=== PATIENT | female | born 1990 | race Caucasian/White ===

== ENCOUNTER 2018-08-23 00:05 | Observation (INO) | payer BC ==
[~2018-08-23] VITALS: Ht 167.6 cm; Wt 101.6 kg
[2018-08-23] MEDS ORDERED: LACTATED RINGERS 1000ML 1,000 ML IV SCH (00:15)
[2018-08-23] MEDS ORDERED: FOLI0.4T2 PO (00:18)
[2018-08-23] MEDS ORDERED: PREN1TAB26 PO (00:18)
[2018-08-23 00:32] LABS: APPEARANCE,URINE Clear (CLEAR); BILIRUBIN,URINE Negative (NEGATIVE); COLOR,URINE Yellow (YELLOW); GLUCOSE, URINE (UA) Negative (NEGATIVE); KETONES,URINE Negative (NEGATIVE); LEUKOCYTE ESTERASE ,URINE Negative (NEGATIVE); NITRATE,URINE Negative (NEGATIVE); OCCULT BLOOD,URINE Negative (NEGATIVE); PROTEIN,URINE Negative (NEGATIVE)
[2018-08-23 01:06] LABS: AMPHET/METH SCREEN,URINE NEGATIVE (NEGATIVE); BARBITURATE SCREEN, URINE NEGATIVE (NEGATIVE); BENZODIAZEPINES SCREEN,URINE NEGATIVE (NEGATIVE); CANNABINOID SCREEN,URINE NEGATIVE (NEGATIVE); COCAINE SCREEN,URINE NEGATIVE (NEGATIVE); OPIATE SCREEN,URINE NEGATIVE (NEGATIVE); PHENCYCLIDINE SCREEN,URINE NEGATIVE (NEGATIVE)
[2018-08-23] MEDS ORDERED: ACETAMINOPHEN 325 MG TAB PO ONE (01:30)
[2018-08-23] MEDS ORDERED: ONDANSETRON HCL MDV 20ML 2 MG/ML VIAL IVP SCH (01:30)
[2018-08-23] MEDS ORDERED: LACTATED RINGERS 1000ML IV SCH (01:30)
[2018-08-23 01:37] VITALS: BP 108/59
[2018-08-23] MEDS ORDERED: ACETAMINOPHEN 325 MG TAB ONE (01:43)
== END 2018-08-23 04:00 | disposition home or self-care (01) ==
LOC: EDH 00:05 → LDH 00:16
PROVIDERS: ADMIT Obstetrics & Gynecology; ATTEND Obstetrics & Gynecology
DX: O21.2 Late vomiting of pregnancy (principal); O26.892 Other specified pregnancy related conditions, second trimester; M54.9 Dorsalgia, unspecified; Z3A.24 24 weeks gestation of pregnancy; Z79.899 Other long term (current) drug therapy
CPT/HCPCS: 80305; 81003; 99283; G0378 ×4; 96360; 96361